=== PATIENT | male | born 1950 | race Caucasian/White ===

== ENCOUNTER → 2016-10-14 | Outpatient (CLI) | payer BC ==
--- NOTE | 2016-10-14 14:09 | ECHOS ---
Referral Reason:R07.9 chest pain MEASUREMENTS -------- HEIGHT: 172.7 cm WEIGHT: 86.2 kg BP: FINDINGS -------- Utilizing the standard Jensen protocol the patient was exercised for 8 minutes, seconds, achieving a maximum heart rate of 144, which is 93% of predicted maximal heart rate. There was physiologic heart rate and blood pressure response to exercise. Max Heart Rate: 144 % of Max Predicted Heart Rate: 93 Rest Heart Rate: 83 Rest BP: 140/58 Max BP: 205/54 Mets Achieved: 9.7 Sinus rhythm. In response to stress, the ECG showed no ST-T wave changes (see exercise report for details). LV size, wall thickness and systolic function are normal, with an EF of 60%. Echo images were acquired at peak stress which demonstrated appropriate augmentation of all left ventricular segments with slight decrease in cavity size. CONCLUSIONS -------- 1. Sinus rhythm. 2. In response to stress, the ECG showed no ST-T wave changes (see exercise report for details). 3. LV size, wall thickness and systolic function are normal, with an EF of 60%. 4. Echo images were acquired at peak stress which demonstrated appropriate augmentation of all left ventricular segments with slight decrease in cavity size. 5. No 2D echocardiographic evidence of inducible ischemia to achieved workload. ARM MAKER: Kassie Monaco RDCS
--- NOTE | 2016-10-14 16:06 | EST ---
Referral Reason:chest pain MEASUREMENTS -------- HEIGHT: 157.5 cm WEIGHT: 70.3 kg BP: 120/50 FINDINGS -------- Utilizing the standard Jensen protocol the patient was exercised for 7 minutes, seconds, achieving a maximum heart rate of 130 , which is 87 % of predicted maximal heart rate. There was physiologic heart rate and blood pressure response to exercise. Max Heart Rate: 147 % of Max Predicted Heart Rate: 87 Rest Heart Rate: 72 Rest BP: 84/57 Max BP: 155/57 Mets Achieved: 8.1 Sinus rhythm. In response to stress, the ECG showed no ST-T wave changes (see exercise report for details). LV size, wall thickness and systolic function are normal, with an EF of 60%. Echo images were acquired at peak stress which demonstrated appropriate augmentation of all left ventricular segments with slight decrease in cavity size. CONCLUSIONS -------- 1. Sinus rhythm. 2. In response to stress, the ECG showed no ST-T wave changes (see exercise report for details). 3. LV size, wall thickness and systolic function are normal, with an EF of 60%. 4. Echo images were acquired at peak stress which demonstrated appropriate augmentation of all left ventricular segments with slight decrease in cavity size. 5. No 2D echocardiographic evidence of inducible ischemia to achieved workload. AUTOMOBILE BRAKE BONDER: TERRENCE Garcia
== END ==
LOC: RADNMMAIN 09:38
PROVIDERS: ATTEND Family Medicine
DX: R07.9 Chest pain, unspecified (principal)
CPT/HCPCS: 93017; 93350

== ENCOUNTER 2018-06-16 10:16 | Day surgery (SDC) | payer BC, OTHER ==
[2018-06-12 11:33] VITALS: BMI 30.7
[~2018-06-16 10:16] MED LIST: LACTATED RINGERS 1,000 ML IV SCH; LIDOCAINE 1% 20 ML VIAL (10MG/ML) FOR IV START INTRADERMA PRN; MIDAZOLAM (PF) 2 MG/2 ML VIAL IV PRN
[2018-06-16 10:55] VITALS: RESP 16; TEMP 98.7
[2018-06-16] MEDS ORDERED: LIDOCAINE 1% INJ 10MG/ML (20 ML MDV) ONE (11:29)
[2018-06-16] MEDS ORDERED: PROPOFOL 10 MG/ML 20 ML VIAL IV ONE (11:29)
[2018-06-16 11:49] VITALS: PULSE 69
--- NOTE | 2018-06-16 11:50 | P.PCN ---
Date of Procedure: 06/16/18 Implants: Procedure: Total colonoscopy. Preoperative diagnosis: Screening for neoplasia. Postoperative diagnosis: Sigmoid diverticulosis with no evidence of acute diverticulitis, strictures, polyps or cancer. Preparation: HalfLytely prep. Sedation: Was provided by anesthesia. Brief clinical history: The patient is a 68-year-old male who is scheduled for this evaluation for screening for neoplasia. His brother had polyps. The patient has no abdominal complaints, bleeding or anemia. His last exam was around 8 years ago. Procedure: With the patient on his left lateral decubitus position and after informed consent and adequate sedation, the perianal area was inspected and it did not show any fissures or fistulas. There were no masses felt on digital rectal examination. The Olympus CFH 190 and video colonoscope was then inserted in the rectum in the usual fashion and advanced to the cecum. There were several diverticular orifices seen scattered in the sigmoid with no evidence of acute diverticulitis or strictures. The mucosa appeared healthy. No polyps or tumors were seen. I retroflexed the endoscope in the rectum before the endoscope was withdrawn. Low-grade internal hemorrhoids were noted with no evidence of bleeding. The patient tolerated the procedure well. Plan: The patient was reassured. Discussed dietary measures. He will follow up with you as planned and I recommended repeat exam in 10 years.
[2018-06-16 12:07] VITALS: BP 141/72
== END 2018-06-16 12:21 | disposition home or self-care (01) ==
LOC: ORWHC2ENDO 10:16
DX: Z12.11 Encounter for screening for malignant neoplasm of colon (principal); K57.30 Diverticulosis of large intestine without perforation or abscess without bleeding; K21.9 Gastro-esophageal reflux disease without esophagitis; K64.8 Other hemorrhoids; E78.5 Hyperlipidemia, unspecified; Z79.899 Other long term (current) drug therapy; Z83.71 Family history of colonic polyps; Z88.8 Allergy status to other drugs, medicaments and biological substances; Z87.891 Personal history of nicotine dependence
CPT/HCPCS: J2001; J2704; G0105

== ENCOUNTER → 2019-11-09 | Outpatient (CLI) | payer MEDICARE, OTHER | END | disposition home or self-care (01) | LOC: LABWHC1 08:50 | PROVIDERS: ATTEND Urology | DX: R97.20 Elevated prostate specific antigen [PSA] (principal) | CPT/HCPCS: 36415; 84153 ==

== ENCOUNTER → 2021-01-16 | Outpatient (CLI) | payer OTHER ==
--- NOTE | 2021-01-16 09:29 | US ---
EXAMINATION TYPE: US thyroid st tissue head/neck DATE OF EXAM: 01/16/2021 COMPARISON: NONE CLINICAL HISTORY: E04.2 Multinodule goiter. Goiter, pt states lump felt in throat GLAND SIZE: Right Lobe: 4.8 x 1.8 x 2.6 cm Overall Parenchyma: heterogenous Left Lobe: 5.0 x 1.6 x 1.6 cm Overall Parenchyma: heterogeneous Isthmus Thickness: 0.3 cm NODULES RIGHT: # of nodules measured on right: 2 1. 1.3 X 0.9 x 1.4 cm, lower, spongiform, hypoechoic nodule, which is wider than tall, with smooth margins, without echogenic foci. Prior size: No prior 2. 0.6 X 0.4 x 0.5 cm, upper, cystic or almost completely cystic, hypoechoic nodule, which is wider than tall, with smooth margins, without echogenic foci. Prior size: No prior LEFT: # of nodules measured on left: 1 1. 0.9 X 0.6 x 0.8 cm, lower , solid or almost completely solid, hyperechoic nodule, which is wider than tall, with smooth margins, without echogenic foci. Prior size: No prior Multiple (up to 5) sub-centimeter nodules, largest at lower pole measured Bilateral neck scanned, no evidence of lymphadenopathy. One nodule right lobe >1cm, all other nodules sub-centimeter bilaterally. Heterogeneous normal-sized thyroid with scattered small nodules. IMPRESSION: Findings consistent with multinodular goiter as detailed above. 2017 ACR TI-RADS LEVEL: TR-RADS 3 - Mildly Suspicious: Follow if > 1.5 cm, FNA if > 2.5 cm *Highest TI-RADS level nodule reported
[2021-01-16 12:12] LABS: T4, Free (Free Thyroxine) 1.09 ng/dL (0.78-2.19)
== END | disposition home or self-care (01) ==
LOC: RADUSWWP 09:01
PROVIDERS: ATTEND Internal Medicine Endocrinology, Diabetes & Metabolism
DX: E04.2 Nontoxic multinodular goiter (principal)
CPT/HCPCS: 76536; 84439; 84443; 84445; 84481

== ENCOUNTER → 2021-01-24 | Outpatient (CLI) | payer OTHER ==
--- NOTE | 2021-01-26 08:20 | NM ---
EXAMINATION TYPE: NM thyroid image w uptake DATE OF EXAM: 01/25/2021 COMPARISON: Correlation ultrasound 01/16/2021 HISTORY: 70-year-old male E04.02, multinodular goiter TECHNIQUE: Thyroid iodine uptake is calculated and images performed after the oral administration of 301 uCi 1-123 Capsule. FINDINGS: There is normal distribution of activity throughout the gland. The 4 hour iodine uptake is calculated at 8.2% (normal range 8-14%). The 24-hour iodine uptake is calculated at 20.7% (normal range 15-35%). IMPRESSION: Normal thyroid scan and uptake.
== END | disposition home or self-care (01) ==
LOC: RADNMMAIN 01-17 08:43
PROVIDERS: ATTEND Internal Medicine Endocrinology, Diabetes & Metabolism
DX: E04.2 Nontoxic multinodular goiter (principal)
CPT/HCPCS: 78014; A9516

== ENCOUNTER → 2021-07-16 | Outpatient (CLI) | payer OTHER ==
[2021-07-16 15:19] LABS: T4, Free (Free Thyroxine) 1.36 ng/dL (0.800-1.800)
== END | disposition home or self-care (01) ==
LOC: LABWHC1 09:07
PROVIDERS: ATTEND Internal Medicine Endocrinology, Diabetes & Metabolism
DX: E05.90 Thyrotoxicosis, unspecified without thyrotoxic crisis or storm (principal)
CPT/HCPCS: 36415; 84439; 84443; 84480

== ENCOUNTER → 2023-11-17 | Outpatient (CLI) | payer OTHER ==
--- NOTE | 2023-11-17 12:05 | US ---
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 GLAND SIZE: Right Lobe: 6.3 x 1.9 x 2.8 cm Overall Parenchyma: heterogeneous Left Lobe: 5.9 x 1.7 x 1.8 cm Overall Parenchyma: heterogeneous Isthmus Thickness: .4 cm NODULES RIGHT: # of nodules measured on right: 1 1. 1.4 X 1.2 x 1.5 cm, lower medial, solid or almost completely solid, hypoechoic nodule, which is wider than tall, with smooth margins, without echogenic foci. TR 4. Prior size: 1.3 x .9 x 1.4 cm LEFT: Multiple measured largest # of nodules measured on left: 1. 1.6 X .9 x 1.1 cm, mid , solid or almost completely solid, hypoechoic nodule, which is wider simon n tall, with smooth margins, without echogenic foci. TR 4. Prior size: .9 x .6 x .8 cm ISTHMUS: # of nodules measured in the isthmus: 0 Bilateral neck scanned, no evidence of lymphadenopathy. IMPRESSION: Multinodular goiter with marginal increase in size of 1.5 cm right thyroid lobe TR 4 nodule. Addition al increase in size of left thyroid lobe 1.6 cm TR 4 nodule. Fine-needle aspiration is recommended fo r both. ACR TI-RADS LEVEL: TR-RADS 4 - Moderately Suspicious: Follow if > 1 cm, FNA if > 1.5 cm *Highest TI-RADS level nodule reported
== END | disposition home or self-care (01) ==
LOC: RADUSWWP 11:31
PROVIDERS: ATTEND Family Medicine
DX: E05.90 Thyrotoxicosis, unspecified without thyrotoxic crisis or storm
CPT/HCPCS: 76536

== ENCOUNTER 2023-12-11 07:55 | Day surgery (SDC) | payer OTHER ==
[2023-12-11 09:00] VITALS: PULSE 56; RESP 16; TEMP 98.2
[2023-12-11 09:49] VITALS: BP 157/83
--- NOTE | 2023-12-11 10:45 | US ---
EXAMINATION TYPE: US discontinued FNA panel DATE OF EXAM: 12/11/2023 10:24 AM CLINICAL INDICATION:Male, 73 years old with history of E04.2 NONTOXIC MULTINODULAR GOITER; , COMPARISON: 11/17/2023, 01/16/2021 ATTENDING: Dr. Cm Valle PROCEDURE: Informed consent was obtained. The risks and benefits of the procedure were discussed with the patien t. The site was marked. Timeout procedure was performed Ultrasound imaging demonstrates bilateral thyroid nodules as described below: On the right the largest measuring 1.5 x 1.3 x 0.9 cm TIRADS Score: 0 TIRADS Category 1: Benign Composition: Spongiform (0 points). Recommendation: No FNA on the left 1.3 x 0.8 cm. TIRADS Score: 2 TIRADS Category 2: Not Suspicious Composition: Mixed cystic and solid (1 point). Echogenicity: Hyperechoic or isoechoic (1 point). Shape: Wider than tall (0 points). Margin: Smooth (0 points). Echogenic foci: None or large comet-tail artifacts (0 points) Recommendation: No FNA The patient was agreeable to follow-up in one year. These have minimally increased in size since 01/16. IMPRESSION: Canceled biopsy due to benign appearance of thyroid gland nodules Hopkins demonstrating score. [facility], , 12/11/2023 10:42 AM
== END 2023-12-11 10:00 | disposition home or self-care (01) ==
LOC: RADPROMAIN 07:55
DX: E04.2 Nontoxic multinodular goiter (principal)
CPT/HCPCS: 76536

== ENCOUNTER 2023-12-15 13:38 | Emergency (ER) | payer OTHER ==
[2023-12-15 13:43] VITALS: TEMP 98.2
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
--- NOTE | 2023-12-15 15:06 | CT ---
EXAMINATION TYPE: CT lumbar spine wo con DATE OF EXAM: 12/15/2023 2:47 PM COMPARISON: None HISTORY: pain after fall off ladder x2 days ago CT DLP: 1070.6 mGycm Automated exposure control for dose reduction was used. Unenhanced CT of the lumbar spine was performed. Bone and soft tissue window settings are submitted as well as coronal and sagittal reconstructions. Findings: There is a anterior superior corner fracture of L1. There is a markedly comminuted burst fracture of L3 also involving the pedicles of L3. There is sligh t 5-10% retropulsion of the fracture. The disc spaces are well maintained from L1 through L5. There is mild to moderate degenerative disc d isease of the L5-S1 disc. There are no large disc herniations. Secondary to circumferential disc bulge and thickening of ligamentum flavum, there is mild spinal amy nosis at the L3-4 and L4-5 levels. IMPRESSION: 1. Fractures of L1 and L3 as described above. 2. Minimal retropulsion at the L3 level 3. Mild spinal stenosis at the L3-4 and L4-5 levels. 4. Mild to moderate degenerative disease at the L5-S1 level 5. mild facet arthropathy at the L4-5 and L5-S1 level. [facility], , 12/15/2023 3:04 PM
[2023-12-15] MEDS: IBUPROFEN 600 MG TAB PO STA (15:10)
[2023-12-15 15:17] VITALS: BP 105/56; PULSE 61; RESP 18
== END 2023-12-15 16:46 | disposition home or self-care (01) ==
LOC: EC 13:38
CPT/HCPCS: 72131; 99284

== ENCOUNTER → 2024-01-16 | Outpatient (CLI) | payer OTHER, MEDICARE ==
--- NOTE | 2024-01-16 11:58 | XR ---
EXAMINATION TYPE: XR chest 2V DATE OF EXAM: 01/16/2024 10:52 AM COMPARISON: None. CLINICAL INDICATION: Male, 73 years old with history of SHORTNESS OF BREATH, TECHNIQUE: XR chest 2V view(s) obtained. FINDINGS: The heart size is normal. The pulmonary vasculature is normal. The lungs are clear. IMPRESSION: 1. No acute pulmonary process. [facility], , 01/16/2024 11:56 AM
[2024-01-16 15:12] LABS: HCT 43.7 % (39.6-50.0); HGB 14.7 g/dL (13.0-17.0); MCHC 33.6 g/dL (32.0-37.0); MCV 92.2 FL (80.0-97.0); Mean Platelet Volume 11.7 FL (9.5-12.2); NRBC Per 100 WBC 0 X 10*3/uL (0.00-0.01); Platelet Count 204 X 10*3/uL (140-440); RBC 4.74 X 10*6/uL (4.40-5.60); RDW 12.5 % (11.5-14.5); WBC 6.34 X 10*3/uL (4.50-10.00)
[2024-01-16 15:29] LABS: Blood Urea Nitrogen 16.9 mg/dL (9.0-27.0); Glucose 96 mg/dL (70-110)
[2024-01-16 15:30] LABS: ALT 24 U/L (10-49); AST 25 U/L (14-35); Albumin 4.6 g/dL (3.8-4.9); Albumin/Globulin Ratio 1.77 Ratio (1.60-3.17); Alkaline Phosphatase 109 U/L (41-126); Calcium 9.6 mg/dL (8.7-10.3); Carbon Dioxide 22.5 mmol/L (21.6-31.8); Chloride 109 mmol/L (96-109); Globulin 2.6 g/dL (1.6-3.3); Potassium 4.1 mmol/L (3.5-5.5); Sodium 144 mmol/L (135-145); Total Bilirubin 0.8 mg/dL (0.3-1.2); Total Protein 7.2 g/dL (6.2-8.2)
[2024-01-16 17:40] LABS: INR 1.06 sec (0.93-1.11); Prothrombin Time 11.4 sec (9.9-11.9)
== END | disposition home or self-care (01) ==
LOC: LABWHC1 09:49
PROVIDERS: ATTEND Orthopaedic Surgery
DX: Z01.818 Encounter for other preprocedural examination (principal); S32.009A Unspecified fracture of unspecified lumbar vertebra, initial encounter for closed fracture; Z22.322 Carrier or suspected carrier of Methicillin resistant Staphylococcus aureus; E27.40 Unspecified adrenocortical insufficiency; R58 Hemorrhage, not elsewhere classified; E03.9 Hypothyroidism, unspecified; R06.02 Shortness of breath
CPT/HCPCS: 36415; 71046; 80053; 85027; 85610; 86850; 86900; 86901; 87070; 93005

== ENCOUNTER 2024-01-27 13:15 | Inpatient (IN) | payer MEDICARE, OTHER ==
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
[~2024-01-27 13:15] MED LIST changes: -LACTATED RINGERS 1,000 ML IV SCH; -LIDOCAINE 1% 20 ML VIAL (10MG/ML) FOR IV START INTRADERMA PRN; -MIDAZOLAM (PF) 2 MG/2 ML VIAL IV PRN; +ONDANSETRON 4 MG/2 ML VIAL IVP PRN; +TRANEXAMIC 1,000 MG/100ML-NACL 1,000 MG in SALINE 1 100ML.BAG IVPB PRN
[2024-01-27] MEDS: DEXAMETHASONE SOD PHOSPHATE 4 MG/ML 1 ML VIAL IV ONE (13:54)
[2024-01-27] MEDS: ONDANSETRON 4 MG/2 ML VIAL IVP ONE (13:54)
[2024-01-27] MEDS: LACTATED RINGERS 1,000 ML IV SCH (13:54)
[2024-01-27] MEDS: ACETAMINOPHEN TAB 500 MG TAB PO PRN (13:55)
[2024-01-27] MEDS: GABAPENTIN 300 MG CAP PO PRN (13:55)
[2024-01-27] MEDS: IV FLUID CONTINUATION 1,000 ML IV ONE ×2 (14:29→14:30)
[2024-01-27] MEDS ORDERED: ePHEDrine 50 MG/ML 1 ML VIAL ONE (14:33)
[2024-01-27] MEDS ORDERED: NEOSTIGMINE 1 MG/ML 10 ML VIAL ONE (14:33)
[2024-01-27] MEDS ORDERED: PHENYLEPHRINE 10 MG/ML VIAL ONE (14:33)
[2024-01-27] MEDS ORDERED: ROCURONIUM 10 MG/ML (5 ML VIAL) IV ONE (14:33)
[2024-01-27] MEDS ORDERED: fentaNYL (PF) 50 MCG/ML 2 ML AMP ONE (14:33)
[2024-01-27] MEDS ORDERED: GLYCOPYRROLATE 0.2 MG/ML 2 ML VIAL ONE (14:33)
[2024-01-27] MEDS ORDERED: MIDAZOLAM 2 MG/2 ML VIAL ONE (14:33)
[2024-01-27] MEDS ORDERED: LIDOCAINE 1% INJ 10MG/ML (20 ML MDV) ONE (14:33)
[2024-01-27] MEDS ORDERED: TRANEXAMIC 1,000 MG/100ML-NACL PREMIX BAG ONE (14:33)
[2024-01-27] MEDS ORDERED: SUCCINYLCHOLINE CHLORIDE 200 MG/10 ML VIAL IV ONE (14:33)
[2024-01-27] MEDS ORDERED: PROPOFOL 10 MG/ML 20 ML VIAL IV ONE (14:33)
[2024-01-27] MEDS: THROMBIN (BOVINE) 5,000 UNIT VIAL TOPICAL ONE (15:11)
[2024-01-27] MEDS: LIDOCAINE 2%-EPI 1:100,000 20 ML VIAL SQ ONE (15:11)
[2024-01-27] MEDS: BUPIVACAINE (PF) 0.5% 30 ML VIAL SQ ONE (15:11)
[2024-01-27] MEDS ORDERED: HYDROmorphone 0.5 MG/0.5 ML SYRINGE IVP PRN (16:18)
[2024-01-27] MEDS ORDERED: HYDROmorphone 1 MG/ML 1 ML SYRINGE IVP PRN (16:18)
[2024-01-27] MEDS ORDERED: CYCLOBENZAPRINE 5 MG TAB PO PRN (16:18)
[2024-01-27] MEDS ORDERED: HYDROcodone/APAP 10-325MG 1 EACH TAB PO PRN (16:18)
[2024-01-27] MEDS ORDERED: HYDROcodone/APAP 5-325MG 1 EACH TAB PO PRN (16:18)
[2024-01-27] MEDS: HYDROmorphone 0.5 MG/0.5 ML SYRINGE IVP PRN (17:30)
[2024-01-27] MEDS: ONDANSETRON 4 MG/2 ML VIAL IVP PRN (18:32)
[2024-01-27] MEDS: KETOROLAC 15 MG/ML 1 ML VIAL IVP SCH (18:32)
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
--- NOTE | 2024-01-27 22:11 | P.OP ---
Date of Procedure: 01/27/24 Preoperative Diagnosis: 1. L3 AO A4/B2 BURST FRACTURE 2. L1 SUPERIOR ENDPLATE FRACTURE 3. LOW BACK PAIN 4. S/P FALL OFF LADDER Postoperative Diagnosis: 1. L3 AO A4/B2 BURST FRACTURE 2. L1 SUPERIOR ENDPLATE FRACTURE 3. LOW BACK PAIN 4. S/P FALL OFF LADDER Procedure(s) Performed: 1. OPEN TREATMENT L3 FRACTURE 2. L2-4 SEGMENTAL STABILIZATION USE OF IONM ALL SCREWS TESTING > 20 mA Implants: -MOISE EVEREST RODS AND SCREWS Anesthesia: GETA Surgeon: Charli Traore Gluer And Slicer Hand #1: Cat Andrade (WAS PRESENT AND ASSISTED WITH ALL ASPECTS OF THE CASE FROM POSITION TO DRESSING PLACEMENT) Estimated Blood Loss (ml): 100 IV fluids (ml): 1,200 Urine output (ml): 300 Pathology: none sent Condition: stable Disposition: PACU Indications for Procedure: Angelo Jin is a 73 year old male presenting for evaluation of sudden onset of low back pain and LE radiculopathy and paresthesias after fall 15 ft off ladder. It was my pleasure to have seen and examined Mr. Jin. In our visit today we have had a chance to go over subjective complaints, physical examination findings and treatments, including the natural course history without intervention and various interventional options. The imaging demonstrates unstable L3 burst fracture AO type A4 with posterior element distruption with interval progression of the fracture and instability since previous imaging. On physical exam, Mr. Jin demonstrates Severe TTP of the lumbar spine with limited ROM, ADL tolerance and inability to ambulate effectively due to his pain and debility. I explained to the patient that as his condition progresses it could cause Contiued and or progressive neurological demise, continued and or progressive back pain, severe deformtity . At this time, based on the patients imaging and physical exam, I recommend surgery in the form or a: URGENT OPEN TREATMENT OF UNSTABLE L3 BURST FRACTURE WITH L2-L4 STABILIZATION I discussed the risk and benefits of this procedure at length with Mr. Jin. The patient agreed to consider pursuing the procedure mentioned above. Plan: 1. URGENT OPEN TREATMENT OF UNSTABLE L3 BURST FRACTURE WITH L2-L4 STABILIZATION Description of Procedure: OPEN TREATMENT L3 FRACTURE; L2-4 STABILIZATION (MIS, FREE HAND) The patient was seen and examined in the preoperative area. All preoperative protocols were followed. Informed consent was obtained, risks and benefits of the procedure were discussed at length. Risks including bleeding infection damage to the surrounding tissue and risk of reoperation were discussed with the patient. Risk of anesthesia up to and including was discussed with the patient. These are outlined in the risk review. They were willing to accept these risks and all of the risks of surgery. The patient was given a weight- based dose of antibiotics in the form of Ancef 2 g. The patient was seen and ev aluated by the anesthesia team who deemed them fit for surgery. The site was marked, the patient was willing to proceed with the procedure. The patient was transferred to the operative suite by the Department of anesthesia. They were then drifted off to sleep by the department anesthesia and GETA was performed. The patient tolerated this well. [Kwok catheter was placed by the nursing staff, atraumatically]. Once confirmation of lines and ventilation the patient was transferred to a [prone Zhen table very carefully]. All bony prominences including wrists, elbows, axilla, chest, hips, and thighs, and feet were padded very well. Special attention was paid to the genitalia and these were padded accordingly. SCDs were placed on bilateral lower extremities and were connected. Arms were well padded and placed [on arm boards up and out in the 90/90 position]. Once in position, again we confirmed good ventilation capabilities and that lines were running appropriately. The patient's lumbar spine was then exposed. 1010s were placed outlining the incision site. Standard alcohol was used to clean the incision site and allowed to dry. C-arm was used to biomark the patient and confirm level for incision which was marked with a skin marker. Operative briefing was performed with all teams and everyone in agreement to proceed. The patient was then prepped and draped in a normal sterile fashion. Timeout was then performed and all parties were in agreement with the procedure to be performed. Biplanar fluoroscopy was then used to localize again the fracture site and L2-4. Skin nicks were made and Jamshidis were then introduced into bilateral L2 pedicles using biplanar fluoroscopy. Once in good position, wires were placed and Jamshidi removed. Wires secured to the drape. This was then repeated at L4 bilaterally. Wires were then visualized in AP and LAT and were in good position. Screws were then selected and measured and placed over wires using lateral fluoroscopy for guidance. Once the screw was at the back of the body, wire was removed to avoid advancement. They were confirmed to be in good position on AP and lateral fluoroscopy. Screws were then tested with IONM and all screws tested > 20mA. We then sized and selected rods rods were then placed subfascially into the tulip heads set screws were placed and final tightened. Tabs were removed from screws and final imaging confirmed good placement of hardware, good reduction of fracture and maintaining alignment. To confirm screw placement, we obtained intraoperative 3D C-arm spin. This was reviewed and confirmed good placement of screws and good reduction of fracture. The wounds were then copiously irrigated with normal sterile saline. Local anesthetic was placed in the skin. Wounds were then closed deep fascia with 0 Vicryl superficial 2-0 Vicryl in the subcu region. [place] were placed in the skin. Wound edges approximated very well. The wounds were then cleaned and dressed sterilely with operative foam dressing. The patient was transferred back to their hospital bed atraumatically. Patient was then awakened and extubated by the department of anesthesia having tolerated the procedure very well with no complications. They were transferred to the postoperative care unit in stable condition.
[2024-01-27] MEDS: TAMSULOSIN 0.4 MG CAP.ER.24H PO SCH (23:28)
[2024-01-27] MEDS: ATORVASTATIN 20 MG TAB PO SCH (23:28)
--- NOTE | 2024-01-28 00:34 | CT ---
EXAMINATION TYPE: CT lumbar spine wo con DATE OF EXAM: 01/28/2024 12:12 AM COMPARISON: CT lumbar spine December 15, 2023 CLINICAL INDICATION: Male, 73 years old with history of s/p Open treatment L3 fx with L2-L4 stabiliza tion; PHH, s/p Open treatment L3 fx with L2-L4 stabilization TECHNIQUE: Unenhanced CT of the lumbar spine was performed. Bone and soft tissue window settings are submitted as well as coronal and sagittal reconstructions. CT DLP: 1030.[address] CTDI: 25 mGy Automated exposure control for dose reduction was used. FINDINGS: There are 5 lumbar type vertebra redemonstrated. Persistent comminuted fracture of the L3 vertebra. T here is interval placement of posterior interpedicular rods and screws transfixing the L2 through the L4 vertebra bilaterally. Screw position appears grossly satisfactory. There is better visualization with slightly more prominent distraction of acute comminuted fracture involving the anterior superior L1 vertebra. Alignment is stable and satisfactory in the lumbar spine. Moderate disc space narrowing at L5-S1 level is redemonstrated. New posterior skin rahul are partially imaged. There is new ill- defined fluid and air in the deep subcutaneous tissue posteriorly. Mild to moderate calcified plaque of the overlying abdominal aorta is again seen. Surgical sutures at base of cecum medially are redemo nstrated. IMPRESSION: New surgical hardware from the L2-L4 levels bilaterally stabilizing comminuted slightly displaced fra cture of the L3 vertebra. Alignment is stable. Hardware position felt satisfactory. [facility], , 01/28/2024 12:32 AM
[2024-01-28 06:20] LABS: Basophils % (A) 0 %; Eosinophils % (A) 0 %; HCT 38.6 % (39.0-53.0); HGB 12.8 gm/dL (13.0-17.5); Lymphocytes # (A) 0.6 k/uL (1.0-4.8); Lymphocytes % (A) 6 %; MCH 31.1 pg (25.0-35.0); MCHC 33.1 g/dL (31.0-37.0); MCV 93.7 fL (80.0-100.0); Mean Platelet Volume 8.1; Monocytes # (A) 0.5 k/uL (0-1.0); Monocytes % (A) 6 %; Neutrophils # (A) 8.1 k/uL (1.3-7.7); Neutrophils % (A) 87 %; Platelet Count 253 k/uL (150-450); RBC 4.12 m/uL (4.30-5.90); RDW 12.3 % (11.5-15.5); WBC 9.3 k/uL (3.8-10.6)
[2024-01-28 08:28] VITALS: BP 119/65; PULSE 86; RESP 18; TEMP 97.6
--- NOTE | 2024-01-28 08:46 | P.PN ---
Subjective Progress Note Date: 01/28/24 Principal diagnosis: 1. L3 unstable burst fracture AO type a 4 with posterior element disruption 2. Low back pain status post fall off a ladder 3. Right lower extremity paresthesia and radiculopathy due to lumbar stenosis Patient seen and examined this morning. Patient is resting comfortably in bed. He states that he has been on multiple times ambulating with an room in t olerating activity well. Patient does report improvement of the right lower extremity radiculopathy and back pain since the procedure. Patient states his pain is managed on current regimen. RN informs that patient needed to be straight cath for 800 mL output. Patient is currently on Flomax twice a day and follows with Dr. Mohan outpatient.Patient is looking forward to possibly going home later today. Informed patient that there may be a possibility that he may do so with a German catheter if necessary.Surgical incisions to the lumbar spine, dressings are clean dry and intact. No active drainage or shadowing noted. Informed patient that physical therapy will be in the work with him today. Patient is looking forward to possibly going home later today. Objective - Vital Signs Vital signs: Vital Signs Temp 97.6 F 01/28/24 07:44 Pulse 86 01/28/24 07:44 Resp 18 01/28/24 07:44 BP 119/65 01/28/24 07:44 Pulse Ox 94 L 01/28/24 07:44 FiO2 Intake & Output 01/27/24 01/28/24 01/28/24 18:59 06:59 18:59 Intake Total 1300 540 Output Total 400 1825 800 Balance 900 -1285 -800 Weight 82.2 kg Intake: IV 1300 Oral 540 Output: Urine 300 1825 800 Uretheral (German) 600 800 Estimated Blood Loss 100 - Exam Physical Examination General: The patient is awake and alert, in no acute distress Skin: Skin is warm and dry with no obvious rashes or lesions. Surgical in cisions to the lumbar spine, dressings are clean dry and intact with no shadowing or active drainage noted. Neck: The neck is supple, there is no tenderness and ROM intact. Cardiovascular: There is a regular rate and rhythm. Respiratory: Respirations are non-labored.. Gastrointestinal: Soft, non-distended, non-tender abdomen. Back: There is no tenderness to palpation in the midline, paralumbar, parathoracic or buttocks region. There is no obvious deformity. Musculoskeletal: ROM limited secondary to pain and stiffness from surgical procedure. Right: shoulder abduction 5/5, elbow flexors 5/5, wrist dorsiflexors 5/5. finger abductor 5/5, mercerizing range controller 5/5, hip flexor 5/5, knee flexor 5/5, ankle dorsiflexor 5/5, ankle plantarflexion 5/5 and extensor hallucis 5/5. Left: shoulder abduction 5/5, elbow flexors 5/5, wrist dorsiflexors 5/5. finger abductor 5/5, mercerizing range controller 5/5, hip flexor 5/5, knee flexor 5/5, ankle dorsiflexor 5/5, ankle plantarflexion 5/5 and extensor hallucis 5/5. Neurological: CN 2-12 intact. There are no obvious motor or sensory deficits. Movement and coordination equal and intact. Sensory exam to light touch intact C5-T1 and intact from L2-S1. Reflexes 2/4 in bilateral upper and lower extremities. Negative Hoffmans, babinski, and clonus signs. Psychiatric: Cooperative, appropriate mood & affect, normal judgment. - Labs CBC & Chem 7: 01/28/24 05:24 Labs: Abnormal Lab Results - Last 24 Hours (Table) 01/28/24 Range/Units 05:24 RBC 4.12 L (4.30-5.90) m/uL Hgb 12.8 L (13.0-17.5) gm/dL Hct 38.6 L (39.0-53.0) % Neutrophils # 8.1 H (1.3-7.7) k/uL Lymphocytes # 0.6 L (1.0-4.8) k/uL Assessment and Plan Assessment: Postop day 1: Open treatment of L3 burst fracture with L2-L4 stabilization Plan: -Appreciate educational consultant and team management. -Activity: Ambulate QID, OOB all meals, up and about, limit lifting bending twisting to less than 5 lbs. Use walker or cane if needed for stability. -Daily PT/OT, increase ambulation strength and balance. -Pain control: Adequate at this time -Meds: reviewed -GI ppx: senna, Miralax -Straight cath as need for retention, if needed x3 leave german cath in place. -DVT PPX: Aspirin 81mg daily -Hygiene: Maintain incision clean and dry. May change dressing as needed, please document in notes if perfromed. Meticulous cleaning after BMs away from the incision site -Drains: Maintain for now. Continue to monitor and record output q shift. -Encourage IS 10x/hr -Dispo: Anticipate discharge home later today *I reviewed and discussed this case with my attending Dr. Traore, whom has reviewed this chart and films and is in agreement with assessment and plan of care as outlined above. I have personally seen and examined the patient, performed the documentation and the assessment and plan as written. Number of minutes spent on the visit: 20m.
[2024-01-28] MEDS ORDERED: NON FORMULARY DRUG (Glucosamine Sulfate 500 MG Cap) PO SCH (09:00)
[2024-01-28] MEDS ORDERED: NON FORMULARY DRUG (Vitamin B Complex [Vitamin B Complex] 1 EACH Capsule) PO SCH (09:00)
[2024-01-28] MEDS ORDERED: TAMSULOSIN 0.4 MG CAP.ER.24H PO SCH (09:00)
[2024-01-28] MEDS: METOPROLOL SUCCINATE (ER) 25 MG TAB.ER.24H PO SCH (09:54)
[2024-01-28] MEDS: MULTIVITAMINS, THERA 1 EACH TAB PO SCH (09:54)
[2024-01-28] MEDS: SENNOSIDES-DOCUSATE SODIUM 1 EACH TAB PO SCH (09:54)
[2024-01-28] MEDS: methIMAzole 5 MG TAB PO SCH (09:55)
[2024-01-28] MEDS: CHOLECALCIFEROL 25 MCG (1000 IU) TABLET PO SCH (09:55)
[2024-01-28] MEDS: PANTOPRAZOLE 40 MG TABLET PO SCH (10:29)
--- NOTE | 2024-01-28 12:12 | P.PN ---
Subjective Progress Note Date: 01/28/24 Principal diagnosis: 73-year-old male with medical history of hypothyroidism, hypertension, BPH presented for evaluation of ORIF of L3 fracture with L2-4 stabilization. 01/27: noted to be retaining overnight requiring straight cath Objective - Vital Signs Vital signs: Vital Signs Temp 97.6 F 01/28/24 07:44 Pulse 86 01/28/24 07:44 Resp 18 01/28/24 07:44 BP 119/65 01/28/24 07:44 Pulse Ox 94 L 01/28/24 07:44 FiO2 Intake & Output 01/27/24 01/28/24 01/28/24 18:59 06:59 18:59 Intake Total 1300 540 Output Total 400 1825 800 Balance 900 -1285 -800 Weight 82.2 kg Intake: IV 1300 Oral 540 Output: Urine 300 1825 800 Uretheral (German) 600 800 Estimated Blood Loss 100 - Exam Gen: In NAD, non-toxic. surgiical deressing seen over lower back HEENT: normocephalic, atraumatic, hearing acuity is intant, mucous membranes moist CVS: perfusing all extremities well, no pitting edema, Respiratory: symmetric chest expansion, no accessory muscle use, GI: soft, NTTP, ND, : no suprapubic tenderness, no CVA tenderness MSK/Derm: no rashes, cyanosis Neuro: CN II-XII intact, no motor weakness, - Labs CBC & Chem 7: 01/28/24 05:24 Labs: Abnormal Lab Results - Last 24 Hours (Table) 01/28/24 Range/Units 05:24 RBC 4.12 L (4.30-5.90) m/uL Hgb 12.8 L (13.0-17.5) gm/dL Hct 38.6 L (39.0-53.0) % Neutrophils # 8.1 H (1.3-7.7) k/uL Lymphocytes # 0.6 L (1.0-4.8) k/uL Assessment and Plan Assessment: #) Hyperthyroid dz. awaiting tsh with free t4. Continue home methimazole 5 mg BID #) Primary htn Continue home metoproll succinate 25 mg daily #) S/p ORIF of L3 with l2-l4 stabilization #) BPH-Continue tamsulosin 0.4 mg daily. assess ability to self void. required to be straight cather overnight. If unable to self void. would recommend german catheter placement and outpatient german cather removal with TOV with urology outpatient -Anticipate d/c home later today as per primary team +/- german catheter (1) Fracture of lumbar spine Current Visit: Yes Status: Acute Code(s): S32.009A - UNSP FRACTURE OF UNSP LUMBAR VERTEBRA, INIT FOR CLOS FX SNOMED Code(s): 397373750 Time with Patient: Less than 30
--- NOTE | 2024-01-28 15:40 | P.DS ---
Providers Date of admission: 01/27/24 13:15 Expected date of discharge: 01/28/24 Attending physician: Sb Ghotra MD Consults: 01/27/24 16:18 Consult Physician Routine Consulting Provider: Rahul Fregoso Consult Reason/Comments: Medical Management Do you want consulting provider notified?: Yes Primary care physician: Sb Ghotra MD Hospital Course: Hospital Course: The patient was evaluated preoperatively and found to have the diagnosis of L3 burst fracture. They underwent appropriate preoperative care and were willing to undergo the intended procedure. They underwent a successful Open treatment of L3 burst fracture and L2-L4 stabilization were recovered appropriately and sent to the floor. While on the floor they worked with physical therapy, occupational therapy and nursing to enhance their recovery experience. Their pain was well controlled through their stay and they were started on appropriate medications, DVT ppx modalities, activity and dietary needs. Daily labs were monitored closely, and transfusions were only used when necessary. Medicine as well as other consulting services have made their input and have helped with our team approach and multidisciplinary care. PT milestones have been met and passed and they have made the recommendation of Home for this patient and treating providers agree with this care path. The patient will be discharged home with appropriate medications, instructions and follow-up information and in stable condition. Patient Condition at Discharge: Good Plan - Discharge Summary Discharge Rx Participant: No New Discharge Prescriptions: New HYDROcodone/APAP 5-325MG [[place] 5-325] 1 tab PO Q6HR PRN #18 tab PRN Reason: Pain cefaDROXiL [Duricef] 500 mg PO Q12HR #10 cap Sennosides/Docusate Sodium [Senna Plus 8.6-50 mg Softgel] 1 each PO DAILY PRN #20 capsule PRN Reason: Constipation No Action Cholecalciferol [Vitamin D3] 2,000 unit PO DAILY Simvastatin [Zocor] 40 mg PO HS Multivitamins, Thera [Multivitamin (formulary)] 1 tab PO DAILY Glucosamine Sulfate 1 tab PO DAILY Metoprolol Succinate [Metoprolol Succinate ER] 25 mg PO DAILY methIMAzole [Tapazole] 5 mg PO Q2D Vitamin B Complex 1 tab PO DAILY Tamsulosin [Flomax] 0.4 mg PO DAILY methIMAzole [Tapazole] 2.5 mg PO Q2D Discharge Medication List Cholecalciferol [Vitamin D3] 2,000 unit PO DAILY 06/12/18 [History] Multivitamins, Thera [Multivitamin (formulary)] 1 tab PO DAILY 06/12/18 [History] Simvastatin [Zocor] 40 mg PO HS 06/12/18 [History] Glucosamine Sulfate 1 tab PO DAILY 12/02/23 [History] Metoprolol Succinate [Metoprolol Succinate ER] 25 mg PO DAILY 12/02/23 [History] methIMAzole [Tapazole] 5 mg PO Q2D 12/02/23 [History] Tamsulosin [Flomax] 0.4 mg PO DAILY 01/22/24 [History] Vitamin B Complex 1 tab PO DAILY 01/22/24 [History] methIMAzole [Tapazole] 2.5 mg PO Q2D 01/22/24 [History] HYDROcodone/APAP 5-325MG [[place] 5-325] 1 tab PO Q6HR PRN #18 tab 01/28/24 [Rx] Sennosides/Docusate Sodium [Senna Plus 8.6-50 mg Softgel] 1 each PO DAILY PRN #20 capsule 01/28/24 [Rx] cefaDROXiL [Duricef] 500 mg PO Q12HR #10 cap 01/28/24 [Rx] Follow up Appointment(s)/Referral(s): Charli Traore DO [Doctor of Osteopathic Medicine] - 2 Weeks Patient Instructions/Handouts: [place] Catheter Placement and Care (DC), Urinary Leg Bag (GEN), How to Change a Catheter Drainage Bag (DC) Activity/Diet/Wound Care/Special Instructions: Spine Discharge and Recovery Instructions Date of Surgery: [] Diagnosis: [] Procedure: [] Medications: See medication list All medication refills should be obtained through your primary care doctor or your clinic spine surgeon. Please discuss prescription refills at your follow up appointment. Do not call the hospital for medication refills. Activity: Encourage ambulation with assist of walker, Up and about 6-8x daily PT/OT daily work on balance, strength and mobility Up in chair with all meals Shower daily Brace: Use brace when up and about, do not wear in bed or shower Dressing: Leave your dressing in place for a total of 3 days post operatively. Then you may remove your dressing and leave open to air. Keep the area clean and if not able to keep area clean, then cover with sterile gauze and tape. Showering: You may shower 3 days after your procedure allowing soap and water to run over incision. Do not scrub. Do not soak. Blot dry. Follow up: Please confirm a follow up appointment with your surgeon 2 weeks post operatively. Please make an appointment to follow up with your PCP in 1-2 weeks after surgery for evaluation 3 phase, 3-week plan POST OP WEEKS 1-3 1. Lifting/carrying/pushing/pulling limited to less than 5 pounds. 2. Do not sit for longer than 15 minutes at one time. Get up and walk around. Prolonged sitting is NOT advised. If you lay down, see if you can tolerate laying down on you front (belly side) 3. Walk for periods of 15 minutes = 1 mile but no longer; do it multiple times times each day. 4. Ice your low back after activity. POST OP WEEKS 3-6 1. Lifting limited to less than 20 pounds. 2. Do not sit for longer than 30 minutes at a time. Frequently change positions. Use a sit-to stand workstation or take frequent breaks from sitting if you have returned to work. 3. Walk for 30 minutes each day. If possible, do these three or more times a day POST OP WEEKS 6+ At your 6-week appointment we will give you a physical therapy referral to focus on a core stabilization and strengthening program. You should also work on leg & buttock strengthening, hamstring & quadriceps stretching, and continue a low impact aerobic activity program such as swimming, walking, or riding a stationary bicycle. During the initial 6 weeks after your surgery, you are at the highest risk of re-injuring your spine. You should generally avoid BLTs (bending, lifting and twisting combination motions) and follow the above guidelines to reduce the chance of reinjury. You can anticipate post op appointments in our office at approximately 3 weeks and 6 weeks after your surgery. INCISION CARE: If your incision is not draining you do NOT need to cover it with a dressing. Keep your incision clean, dry and intact. In most cases, we apply skin glue, rahul or sutures to the incision at the time of surgery. This will be like a crust or have the appearance of a scab and will fall off in time on its own. The stitches or rahul need to be removed at 3 weeks post op appointment. You may begin to shower 3 days after surgery (this allows the glue to maldonado well). However, please avoid scrubbing the incision site or peeling off any of the skin glue. This will ensure optimal healing of your incision. Also, during this time avoid soaking the incision area in water - this includes swimming pools, hot tubs or baths. No ointments, lotions or oils on the incision until your surgeon allows. Leave rahul, sutures or glue in place. Neurological dysfunction that comes on suddenly can also be a sign of a stroke. Below some common symptoms of a stroke are listed: B - balance difficulty such as sudden onset walking or leaning to one side - NEW E - eye problem such as sudden double vision or trouble seeing on one side - NEW F - Facial weakness or numbness on one side - NEW A - Arm or leg weakness or numbness on one side - NEW S - Slurred speech or difficulty with word finding - NEW T - Time is BRAIN! Call 911 as soon as you recognize these symptoms Diet: Consume a regular diet rich in vegetables and lean protein such as chicken or fish. You should consume in a ratio of approximately 20% fats|40% carbohydrates|40%protein. Vegetables, sweet potatoes, brown rice or quinoa are examples of good carbohydrates. Chips, white bread, cookies and sweets/sugar are examples of bad carbohydrates. Limit your bad carbs, go wild with good carbs. "Life's Simple 7" Guidelines as per [place] [employer] These will help you reclaim your life after surgery and help desk specialist in your recovery, keeping in mind your restrictions. (1) Get Active. Physical activity can help people lose weight, control high blood pressure and cholesterol, feel emotionally better, and sleep better. (2) Control Cholesterol. Avoid a diet high in saturated fat, trans fat, & cholesterol. Limit whole milk & cream, ice cream, butter, egg yolks, processed meats (like sausage and hot dogs), and fatty meats. Choose healthy foods that are low in saturated fat, trans fat and cholesterol which include: Fruits and vegetables, fiber rich grain products (like whole grain pasta and brown rice), lean meat such as chicken, fish, nuts, seeds, and legumes. (3) Eat Better. Eat small portions. Shop at the grocery with a list and do not stray from it. Tips for a healthy diet include: Limit sodium intake to less than 1500mg daily, avoid prepackaged, processed, and fast foods, choose a diet rich in fruits, vegetables, and whole grain, high fiber foods, and limit saturated & cholesterol in your diet. (4) Manage Blood Pressure. If you have high blood pressure, you should have a cuff at home so that you can check your blood pressure regularly. Be sure you have a good cuff. An arm one is generally better than a wrist one. Bring the cuff to a doctor's appointment to validate that the measurements that your cuff are taking are accurate. Take your blood pressure twice daily when you are sitting down and relaxing. Record the numbers in a log and bring this log with you to your doctors' appointments. (5) Lose Weight if your BMI is above 25. A healthy BMI is between 19-25. To calculate Your BMI, you may use a Standard BMI Calculator on the NIH BMI website: <www.nhlbi.nih.gov/guidelines/obesity/BMI/bmicalc.htm>. Weigh oneself daily. If you are overweight, set a goal to lose weight. A pound a week loss if needed is a good target. (6) Reduce Blood Sugar. Limit foods and liquids with "added sugars." (Added sugars include sucrose, fructose, glucose, maltose, dextrose, high fructose corn syrup, corn syrup, concentrated fruit juice and honey). (7) Stop Smoking. If you smoke, quitting smoking is one of the best things t hat you can do for your health. Smoking increases your risk of heart attack, stroke, and peripheral vascular disease, which is a build-up of plaque in your arteries. Please discard all the cigarettes and lighters in your house. Have a plan for what you will do when you have the urge to smoke. Direct and second- hand smoke shortens your life as well as the lives of your family, friends and others around you. For your health and the health of those around you, please consider quitting! Proper Bending Body Mechanics: Maintain a wide stance with one foot slightly in front of the other. Keep your back straight. Bend utilizing the strength in your hips and knees. Do not bend at the waist. Maintain the lifted object at your waist-level close to your body. Avoid lifting weight that causes immediately pain or pain anywhere in the body afterwards. Smoking/Nicotine If there was ever one thing that you could do to increase your overall health, decrease your risk of cardiovascular problems by about 39% the second you make the choice, it is to STOP SMOKING. Your body's most instant gratification is the second you stop smoking. We have all heard the studies, read the articles but it is true, smoking is extremely bad for your overall health, and moreover it is detrimental to your bone health. Nicotine, IN ANY FORM, kills bone cells, prevents your body from healing fractures, and significantly prolongs healing after surgery. In spine surgery specifically, it increases your risk of not healing your bones to create a fusion and increases your risk of having a revision surgery due to this up to 60%. I know it is hard. I know it feels impossible. But there are ways. Take control of your life. We are here to help you through it. And when you are ready, ask us and we can direct you to help if you desire. Use the START Plan to Quit Smoking (please visit the Helpguide.org website listed below for more information): S = Set a quit date. Choose a date within the next 2 weeks, so you have enough time to prepare without losing your motivation to quit. If you mainly smoke at work, quit on the weekend, so you have a few days to adjust to the change. T = Tell family, friends, and co-workers that you plan to quit. Let your friends and family in on your plan to quit smoking and tell them you need their support and encouragement to stop. Look for a quit raymon who wants to stop smoking as well. You can help each other get through the rough times. A = Anticipate and plan for the challenges you'll face while quitting. Most people who begin smoking again do so within the first 3 months. You can help yourself make it through by preparing ahead for common challenges, such as nicotine withdrawal and cigarette cravings. R = Remove cigarettes and other tobacco products from your home, car, and work. Throw away all your cigarettes (no emergency pack!), lighters, ashtrays, and matches. Wash your clothes and freshen up anything that smells like smoke. Shampoo your car, clean your drapes and carpet, and steam your furniture. T = Talk to your doctor about getting help to quit. Your doctor can prescribe medication to help with withdrawal and suggest other alternatives. If you can't see a doctor, you can get many products over the counter at your local pharmacy or grocery store, including the nicotine patch, nicotine lozenges, and nicotine gum. Resources for Quitting Smoking: <https://www.[place]. ov/documents/[facility]/Quit_Tobacco_Resources_for_patients_313480_7.pdf> Supplementation: Take recommended dosages of Vitamin D and Calcium to help fortify your bones and help them to heal. See your health maintenance packet for dosages and recommended levels. DVT/VTE prophylaxis: You will be given compression stockings from the hospital. Wear these daily for the first two weeks after surgery. You may take them off at night. You may be prescribed a medication to help thin your blood. Take this as directed. If you are not prescribed this medication, early and frequent ambulation has been shown to be the best prophylaxis to deep vein thrombosis and sequelae related to this event. Discharge Disposition: HOME SELF-CARE
--- NOTE | 2024-01-28 15:49 | FL ---
EXAMINATION TYPE: FL guidance operating room, XR lumbar spine 2 or 3V DATE OF EXAM: 01/27/2024 4:32 PM COMPARISON: Pre Operative Images if available both CT/MRI or plain film CLINICAL INDICATION: Male, 73 years old with history of LUMBAR FX; TECHNIQUE: FL guidance operating room, XR lumbar spine 2 or 3V, multiple fluoroscopic images provided for procedure. Total fluoroscopy time: 2 min 24 seconds Total submitted images to PACS: 6 DAP: 34.435 mGym2 Gycm2 uGym2 cGycm2 or equivalent. FINDINGS: Fluoroscopic images during internal fixation/arthroplasty demonstrate fixation hardware in appropriat e position. Hardware appears intact. No immediate complication identified. IMPRESSION: 1. No evidence for intraoperative complication. 2. Please see the operative/procedural note for further details. [facility], , 01/28/2024 3:46 PM
[2024-01-28] MEDS ORDERED: ASPIRIN 81 MG PO SCH (21:00)
[2024-01-29] MEDS ORDERED: methIMAzole 5 MG TAB PO SCH (09:00)
== END 2024-01-28 17:31 | disposition home or self-care (01) | DRG 520 ==
LOC: 2ORMAIN 13:15 → 4SSUR 16:34
PROVIDERS: ADMIT Orthopaedic Surgery; ATTEND Internal Medicine
PROC: 8E0WXBG Computer Assisted Procedure of Trunk Region, With Computerized Tomography (ICD-10-PCS; 2024-01-27)
PROC: 0QS004Z Reposition Lumbar Vertebra with Internal Fixation Device, Open Approach (ICD-10-PCS; principal; 2024-01-27 15:00)
DX: S32.018A Other fracture of first lumbar vertebra, initial encounter for closed fracture (principal); S32.032A Unstable burst fracture of third lumbar vertebra, initial encounter for closed fracture; N40.0 Benign prostatic hyperplasia without lower urinary tract symptoms; M54.16 Radiculopathy, lumbar region; M48.061 Spinal stenosis, lumbar region without neurogenic claudication; M40.299 Other kyphosis, site unspecified; I10 Essential (primary) hypertension; E78.5 Hyperlipidemia, unspecified; K21.9 Gastro-esophageal reflux disease without esophagitis; E05.20 Thyrotoxicosis with toxic multinodular goiter without thyrotoxic crisis or storm; E03.9 Hypothyroidism, unspecified; Z82.49 Family history of ischemic heart disease and other diseases of the circulatory system; Z87.891 Personal history of nicotine dependence; Z98.1 Arthrodesis status; W11.XXXA Fall on and from ladder, initial encounter; Z79.899 Other long term (current) drug therapy; Z79.890 Hormone replacement therapy; Z88.6 Allergy status to analgesic agent
CPT/HCPCS: 72100; 72131; 85025